=== PATIENT | female | born 1950 | race Caucasian/White ===

== ENCOUNTER 2018-07-29 11:56 | Emergency (ER) | payer OTHER ==
[~2018-07-29] VITALS: Ht 160 cm; Wt 56.7 kg
[2018-07-29 11:56] VITALS: BP_SYST 128
--- NOTE | 2018-07-29 12:00 | NUR ---
BROUGHT IN BY CAREGIVER FROM [facility] VIA WHEELCHAIR, PLACED IN BED #4 AND TRIAGED. PT IS POLISH SPEAKING ONLY AND ONLY MUMBLING AT THIS TIME. CAREGIVER DOES NOT SPEAK POLISH AND HAS SMALL AMT OF HISTORY.
--- NOTE | 2018-07-29 12:38 | NUR ---
Patient is awake, alert, and oriented x1. Turkmen speaking, caregiver is at bedside. Caregiver reports no bowel movement x2 weeks.
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
--- NOTE | 2018-07-29 14:03 | NUR ---
SYLVIA Madsen at bedside examining patient.
[2018-07-29 15:02] LABS: BASOPHILS % (AUTO) 0.4 % (0.0-2.0); EOSINOPHILS # (AUTO) 0.2 K/uL (0.0-0.4); EOSINOPHILS % (AUTO) 2.1 % (0.0-4.0); HEMATOCRIT 51.7 % (36-48); HEMOGLOBIN 16.7 g/dL (12.0-16.0); LYMPHOCYTES # (AUTO) 2.3 K/uL (1.0-5.5); LYMPHOCYTES % (AUTO) 31.2 % (20.5-51.5); MEAN CORPUSCULAR HEMOGLOBIN 31 pg (27-31); MEAN CORPUSCULAR HGB CONC 32 % (32-36); MEAN CORPUSCULAR VOLUME 97 fL (79.0-98.0); MONOCYTES # (AUTO) 0.5 K/uL (0.0-1.0); MONOCYTES % (AUTO) 7.1 % (1.7-9.3); NEUTROPHILS # (AUTO) 4.3 K/uL (1.8-7.7); NEUTROPHILS % (AUTO) 59.2 % (40.0-70.0); PLATELET COUNT (AUTO) 168 K/uL (130-430); RED BLOOD CELL COUNT(AUTO) 5.31 MIL/uL (4.2-6.2); RED CELL DISTRIBUTION WIDTH 14.1 % (9.0-15.0); WHITE BLOOD COUNT (AUTO) 7.2 K/uL (4.8-10.8)
[2018-07-29 15:09] LABS: CALCIUM 9.5 mg/dL (8.4-11.0); CREATININE 1.55 mg/dL (0.55-1.30); POTASSIUM 3.2 mmol/L (3.5-5.1)
[2018-07-29] MEDS: LACTULOSE 20 GM/30 ML UDC PO ONE (15:09)
[2018-07-29 15:14] LABS: ALBUMIN 3.6 g/dL (3.4-4.8); TOTAL BILIRUBIN 0.4 mg/dL (0.0-1.0)
--- NOTE | 2018-07-29 15:30 | NUR ---
DR HUNT REQUESTING INTERNAL REVENUE AGENT FOR EVALUATION
--- NOTE | 2018-07-29 15:31 | NUR ---
CALL PLACED TO DIGITAL COMMENTATOR EDI
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
[2018-07-29] MEDS: NACL 0.9% 1,000 ML IV ONE ×2 (16:35→16:45)
--- NOTE | 2018-07-29 16:35 | NUR ---
Spoke with [facility] diagnosis given per Dr. Madsen informed that Dr. Vásquez will call back
[2018-07-29] MEDS: LORazepam 2 MG/ML VIAL (FOR ER USE) IVP ONE ×2 (16:51→18:05)
--- NOTE | 2018-07-29 19:08 | NUR ---
Endorsement Endorsed bedside report to Mirela PERALTA using SBAR approach for continuation of care.
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
--- NOTE | 2018-07-29 20:44 | NUR ---
Patient to be transferred to [facility]. Is being transferred due to higher level of care. Receiving facility has accepting physician and available space. ER physician has signed transfer form. Patient or responsible alliance party has agreed to transfer and signed form. Patient belongings inventoried and will be sent with patient. Copy of nursing notes, lab reports, EKG, Physicians Orders and X-rays to be sent with patient. Report called to RN at receiving facility. Receiving physician is Dr. Arboleda. [facility] has been called for transfer. ETA is now.
[2018-07-29 20:50] VITALS: BP_SYST 117
--- NOTE | 2018-07-29 20:50 | NUR ---
Pt left via [facility] to [facility]. Tolerated well. Will cont. to monitor.
== END 2018-07-29 20:50 | disposition short-term general hospital (02) ==
LOC: SED 11:56
DX: E86.0 Dehydration (principal); E87.0 Hyperosmolality and hypernatremia; F03.90 Unspecified dementia, unspecified severity, without behavioral disturbance, psychotic disturbance, mood disturbance, and anxiety; Z88.0 Allergy status to penicillin; Z88.6 Allergy status to analgesic agent
CPT/HCPCS: 36415; 74018; 80053; 85025; 96361; 96374; 96375; 99285; J2060; J7030